=== PATIENT | male | born 1985 | race Caucasian/White ===

== ENCOUNTER 2024-10-16 17:29 | Emergency (ER) | payer SELFPAY ==
[~2024-10-16] VITALS: Ht 185.4 cm; Wt 117.4 kg
[2024-10-16 17:32] VITALS: BP 127/89; PULSE 87; RESP 19; TEMP 98.6; O2SAT 98
--- NOTE | 2024-10-16 18:29 | RADIOLOGY REPORT ---
CT CT HEAD Indication: BLUNT TRAUMA EXAM DATE: 10/16/2024 05:51 PM COMPARISON: None TECHNIQUE: CT of the head without intravenous contrast. RADIATION DOSE: CTDIvol: 62 mGy, DLP: 1190 mGy*cm FINDINGS: There is no intracranial hemorrhage. There is no extra-axial fluid, mass, mass effect or midline shif t. The ventricles are midline and normal in size. Basilar cisterns are patent. Manuel-white differentia tion is maintained. The mastoids are well pneumatized. Fractures of the left orbital floor, lateral orbital de dios, left zygomatic arch, left anterior, medial and lateral maxillary sinus de dios. Soft tissue emphysema withi n the left orbital floor region with depression of the left orbital floor by at least 3 mm. Hemorrhag ic fluid level in the left maxillary sinus. Left orbital preseptal, lie facial region hematoma. Hemorrhagic fluid level in the left maxillary si nus. IMPRESSION: 1. No intracranial hemorrhage or mass effect. 2. Fractures of the left zygomatic arch, left lateral orbital wall, left orbital floor, left anterior , medial and lateral maxillary sinus de idos. Hemorrhagic fluid level in the left maxillary sinus. 3. Fracture left orbital floor with depression by at least 3 mm and soft tissue emphysema along the l eft orbital floor region. Correlate for entrapment.
== END 2024-10-16 18:49 | disposition left against medical advice (07) ==
LOC: ER 17:30
DX: R51.9 Headache, unspecified (principal); Z53.21 Procedure and treatment not carried out due to patient leaving prior to being seen by health care provider
CPT/HCPCS: 70450